=== PATIENT | female | born 1945 | race Caucasian/White ===

== ENCOUNTER → 2016-11-11 | Outpatient (CLI) | payer MEDICARE, BC ==
[~2016-11-11] MED LIST: ACETAMINOPHEN PO; DARVOCET-N 1001 TAB PO; LEVOTHYROXINE25 MCG PO; LOPRESSOR PO; ORACEA PO; PRILOSEC40 MG
--- NOTE | ~2016-11-11 | CT57 ---
[facility] A Service of [facility] RADIOLOGY TEXT RESULTS PATIENT: LEN OH LOCATION: [facility] : 47 UNIT #: [id number] AGE: [address]: Griffin Kolb MD SEX: F ORDER DR: [id number] [address] [address] [id number] O MR#: [id number] Acc #: [id number] NAME: LEN OH : 1945 SEX: F STUDY DATE/TIME: 11/11/2016 13:24 UNIT: [facility] ROOM: STUDY DESCRIPTION: CT Chest Wo Cont Attending Physician: Griffin Kolb M.D. Referring Physician: Griffin Kolb M.D. Ordering Physician: Physician Non-Staff Primary Care Physician: Griffin Kolb M.D. MEDICAL IMAGING REPORT This report is preliminary unless electronic signature is present. EXAM CT chest INDICATION Right-sided chest pain. Pain radiating into the back. TECHNIQUE CT of the thorax without contrast. Coronal and sagittal reconstructions were obtained. This CT exam was performed with one or more of the following radiation dose reduction techniques: automatic exposure control, adjustment of mA and/or kV according to patient size, and iterative reconstruction. COMPARISON Chest radiograph dated 11/04/[address] chest dated 05/07/2015. FINDINGS The lungs are clear. Central airways are patent. No focal consolidation. No enlarged mediastinal or hilar lymph nodes. Thoracic aorta is normal in caliber. No pericardial or pleural effusion. Limited images of the upper abdomen were obtained. There is no acute findings. No acute osseous abnormalities. IMPRESSION No acute findings in the chest. No findings to account for the patient's symptoms. [facility] A Service [facility] RADIOLOGY TEXT RESULTS PATIENT: LEN OH LOCATION: [facility] : 47 UNIT #: [id number] AGE: [address]: Griffin Kolb MD SEX: F ORDER DR: Dictated by... Zachary Diaz M.D. THIS IS AN ELECTRONICALLY VERIFIED REPORT Zachary Diaz M.D. at 11/11/2016 4:19 PM Heide TD: 11/11/2016 15:28 JOB #: [id number] MEDICAL IMAGING REPORT Page 1 of 1
== END | disposition home or self-care (01) ==
LOC: SCT 13:09
DX: R07.89 Other chest pain (principal)
CPT/HCPCS: 71250